=== PATIENT | female | born 1995 | race American Indian/Alaskan Native ===

== ENCOUNTER 2016-08-23 19:33 | Emergency (ER) | payer SELFPAY ==
[2016-08-23 21:10] LABS: Basophils % (Auto) 0.9 % (0.0-1.8); Eosinophils % (Auto) 1.1 % (0.0-4.3); Hematocrit 36.3 % (30.3-42.9); Hemoglobin 11.7 gm/dl (10.1-14.3); Mean Corpuscular HGB Conc 32 % (30-34); Mean Corpuscular Hemoglobin 26 pg (28-32); Mean Corpuscular Volume 81 fl (79-97); Platelet Count 312 K/mm3 (140-440); Red Blood Count 4.49 M/mm3 (3.65-5.03); Red Cell Distribution Width 14.8 % (13.2-15.2); White Blood Count 7.2 K/mm3 (4.5-11.0)
[2016-08-23 21:23] LABS: Alanine Aminotransferase 11 units/L (7-56); Albumin/Globulin Ratio 1.1 %; Alkaline Phosphatase 101 units/L (35-129); Anion Gap 17 mmol/L; BUN/Creatinine Ratio 11.42; Bilirubin,Total < 0.2 mg/dL (0.1-1.2); Blood Urea Nitrogen 8 mg/dL (7-17); Calcium 9.1 mg/dL (8.4-10.2); Carbon Dioxide 25 mmol/L (22-30); Chloride 100.5 mmol/L (98-107); Glucose 96 mg/dL (65-100); Lipase 12 units/L (13-60); Potassium 4.3 mmol/L (3.6-5.0); Sodium 138 mmol/L (137-145); Total Protein 7.6 g/dL (6.3-8.2)
[2016-08-23 22:19] LABS: Bacteria,Urine 1+ /HPF (Negative); Bilirubin,Urine NEG (Negative); Blood,Urine NEG (Negative); Ketones,Urine NEG (Negative); Leukocyte Esterase,Urine SM (Negative); Mucus,Urine FEW /HPF; Nitrite,Urine NEG (Negative); Protein,Urine <15 mg/dL mg/dL (Negative); Urobilinogen,Urine < 2.0 mg/dL (<2.0)
[2016-08-24] MEDS ORDERED: NORCO 5/325 PO ONE (01:12)
--- NOTE | 2016-08-24 01:16 | Emergency Department Report ---
HPI - General Chief Complaint: Abdominal Pain Time Seen by Provider: 08/24/16 00:53 - HPI HPI: The patient is a 20-year-old female who presents for evaluation of abdominal pain. The patient reports right lower quadrant abdominal pain for the past 3 days, constant and severe since 5 PM earlier today, cramping and sharp in quality, and exacerbated with bearing down during micturition or defecation. She shares that she has experienced similar pains in the same location for greater than the past one year, and that she has received multiple evaluations including by her [employer] without definitive diagnosis of etiology of her symptoms. The patient denies fever, chills, night sweats, diarrhea, blood in the stool, dark tarry stool, dysuria, hematuria, flank pain, genital discharge, inability to pass flatus. ED Past Medical Hx - Past Medical History Previous Medical History?: Yes Hx Hypertension: Yes - Surgical History Past Surgical History?: Yes Additional Surgical History: cyst removed off ovary 2yrs ago - Social History Smoking Status: Never Smoker Substance Use Type: None - Medications Home Medications: Home Medications Medication Instructions Recorded Confirmed Last Taken Type Acetaminophen/Codeine [Tylenol #3] 1 tab PO Q6H PRN #12 tab 08/24/16 Unknown Rx Ibuprofen [Motrin] 800 mg PO Q8HR PRN #14 tablet 08/24/16 Unknown Rx ED Review of Systems ROS: Stated complaint: RT ABD PAIN Other details as noted in HPI Constitutional: denies: fever ENT: denies: throat or neck pain Respiratory: denies: cough, shortness of breath Cardiovascular: denies: chest pain Endocrine: denies unexplained weight loss or gain Gastrointestinal: reports abdominal pain, nausea Genitourinary: denies: dysuria Musculoskeletal: denies: leg swelling Skin: denies: rash Neurological: denies: headache Hematological/Lymphatic: denies: easy bleeding or easy bruising Psych: denies sadness or hopelessness Physical Exam - Physical Exam Vital Signs: Vital Signs 08/23/16 08/24/16 20:07 00:50 Temperature 98.2 F 97.9 F Pulse Rate 78 89 Respiratory 18 16 Rate Blood Pressure 142/92 Blood Pressure 144/93 [Left] O2 Sat by Pulse 100 100 Oximetry Physical Exam: General: well-nourished, well-developed, no acute distress Head: Normocephalic, atraumatic Eyes: normal sclera ENT: Mucous membranes are pink and moist Neck: trachea midline, neck supple, No neck stiffness, no cervical adenopathy Respiratory: Breath sounds equal bilaterally, no wheezing, rales, or rhonchi Cardio: S1 and S2 present, no murmurs, rubs, gallops, capillary refill is brisk Abdomen: Normoactive bowel sounds, soft abdomen, right lower quadrant tenderness to palpation present, no rigidity, no guarding or rebound tenderness Chest WALL/Back: No tenderness to palpation of the chest wall, no CVA tenderness with percussion Musc: No pitting edema Skin: No rash Neuro: no facial drooping, normal speech Psych: Normal affect ED Course Vital Signs 08/23/16 08/24/16 20:07 00:50 Temperature 98.2 F 97.9 F Pulse Rate 78 89 Respiratory 18 16 Rate Blood Pressure 142/92 Blood Pressure 144/93 [Left] O2 Sat by Pulse 100 100 Oximetry ED Medical Decision Making - Lab Data Result diagrams: 08/23/16 20:44 08/23/16 20:44 - Medical Decision Making The patient was seen and examined by myself. The patient is placed on a desk monitor and continuous pulse ox. On initial evaluation, the patient was found to be in no distress. Evaluation orders are placed. The patient given a tablet of [place] for her pain. lab results were non-concerning including WBC, hemoglobin, hematocrit, electrolytes, renal function, LFTs, lipase, neg preg test, and nml urinalysis. The patient was reevaluated and reported that their symptoms were markedly improved. The patient is stable for discharge with outpatient follow-up. The patient is given follow-up and return instructions. The patient expressed understanding and agreed with the plan. The patient is discharged in stable condition. Critical care attestation.: If time is entered above; I have spent that time in minutes in the direct care of this critically ill patient, excluding procedure time. ED Disposition Clinical Impression: Acute abdominal pain in right lower quadrant Disposition: DISCHARGED TO HOME OR SELFCARE Is pt being admited?: No Does the pt Need Aspirin: No Condition: Stable Instructions: Dysfunctional Uterine Bleeding (ED), Ovarian Cyst (ED), Abdominal Pain (ED) Prescriptions: Acetaminophen/Codeine [Tylenol #3] 1 tab PO Q6H PRN #12 tab PRN Reason: Pain Ibuprofen [Motrin] 800 mg PO Q8HR PRN #14 tablet PRN Reason: Pain Referrals: PRIMARY CARE, [Primary Care Provider] - 3-5 Days Forms: Work/School Release Form(ED) Time of Disposition: 01:13
[2016-08-24 01:49] VITALS: BP 131/84
== END 2016-08-24 01:38 | disposition home or self-care (01) ==
LOC: ED 19:33
DX: R10.31 Right lower quadrant pain (principal); I10 Essential (primary) hypertension
CPT/HCPCS: 36415; 80053; 81001; 81025; 83690; 85025; 99284

== ENCOUNTER 2021-09-08 07:05 | Emergency (ER) | payer SELFPAY ==
[2021-09-08] MEDS ORDERED: METOCLOPRAMIDE 10 MG TAB PO ONE (07:29)
[2021-09-08] MEDS ORDERED: ACETAMINOPHEN 500 MG TAB PO ONE (07:29)
--- NOTE | 2021-09-08 07:34 | Emergency Department Report ---
ED General Adult HPI - General Chief complaint: Back Pain/Injury Stated complaint: PAIN & DIZZINESS Time Seen by Provider: 09/08/21 07:21 Source: patient Mode of arrival: Ambulatory Limitations: No Limitations - History of Present Illness Initial comments: Patient presents with multiple issues. For the last 7 days she reports having lower back pain. It is described as an aching pain in the bilateral flank area. The pain is not worsened by movement or palpation. It does not radiate or migrate. She has had concomitant cramping in the pelvis bilaterally. This also seems to wax and wane. There was no trauma associated with this. She has had nausea without vomiting. Patient denies dysuria or frequency. She has not had hematuria. Patient denies vaginal discharge but does state that her last menstrual cycle was normal in August. She states that she is currently 6 days late for this particular menstrual cycle. Last menstrual cycle she did not states was at the end of July and it is currently the end of August but she still states that she is 6 days late. She states that her periods are usually fairly regular. She has not done anything to prevent . She has not completed a test. She is a . She did not have symptoms like this with . Patient states that she feels weak all over. She feels lightheaded. She states that she just does not feel good and does have a headache. There has been no cough or congestion. She has had no fevers or chills. Patient denies sick contacts. Severity scale (0 -10): 7 - Related Data Previous Rx's Medication Instructions Recorded Last Taken Type Acetaminophen/Codeine [Tylenol #3] 1 tab PO Q6H PRN #12 tab 08/24/16 Unknown Rx Ibuprofen [Motrin] 800 mg PO Q8HR PRN #14 tablet 08/24/16 Unknown Rx Allergies Allergy/AdvReac Type Severity Reaction Status Date / Time No Known Allergies Allergy Unverified 08/23/16 20:14 ED Review of Systems ROS: Stated complaint: PAIN & DIZZINESS Other details as noted in HPI Comment: All other systems reviewed and negative Constitutional: denies: fever Eyes: denies: vision change ENT: denies: throat pain Respiratory: denies: cough Cardiovascular: denies: chest pain Endocrine: denies: unexplained weight loss Gastrointestinal: as per HPI Genitourinary: as per HPI Musculoskeletal: as per HPI Skin: denies: rash Neurological: as per HPI Hematological/Lymphatic: denies: easy bruising ED Past Medical Hx - Past Medical History Hx Hypertension: Yes - Surgical History Additional Surgical History: cyst removed off ovary 2yrs ago - Family History Family history: hypertension - Social History Smoking Status: Never Smoker Substance Use Type: None - Medications Home Medications: Home Medications Medication Instructions Recorded Confirmed Last Taken Type Acetaminophen/Codeine [Tylenol #3] 1 tab PO Q6H PRN #12 tab 08/24/16 Unknown Rx Ibuprofen [Motrin] 800 mg PO Q8HR PRN #14 tablet 08/24/16 Unknown Rx ED Physical Exam - General Limitations: No Limitations, Other (Pulse ox noted and normal) General appearance: alert, in no apparent distress, obese - Head Head exam: Present: atraumatic, normocephalic, normal inspection - Eye Eye exam: Present: normal appearance, PERRL, EOMI. Absent: scleral icterus - ENT ENT exam: Present: normal orophraynx, normal external ear exam - Neck Neck exam: Present: normal inspection. Absent: meningismus - Respiratory Respiratory exam: Present: normal lung sounds bilaterally. Absent: respiratory distress - Cardiovascular Cardiovascular Exam: Present: regular rate, normal rhythm - GI/Abdominal GI/Abdominal exam: Present: soft. Absent: distended, tenderness, guarding, rebound - Extremities Exam Extremities exam: Present: normal capillary refill. Absent: calf tenderness - Back Exam Back exam: Absent: CVA tenderness (R), CVA tenderness (L) - Neurological Exam Neurological exam: Present: alert, oriented X3, CN II-XII intact, normal gait. Absent: motor sensory deficit - Psychiatric Psychiatric exam: Present: normal affect, normal mood - Skin Skin exam: Present: warm, dry ED Course Vital Signs 09/08/21 07:17 Temperature 98.8 F Pulse Rate 77 Respiratory 16 Rate Blood Pressure 134/80 [Right] O2 Sat by Pulse 98 Oximetry - Reevaluation(s) Reevaluation #1: 09/08/21 07:33 Labs were ordered. Medications were ordered. Old records reviewed. Reevaluation #2: 09/08/21 08:16 Lab was called and asked to start processing the urine sample that they have. Reevaluation #3: 09/08/21 08:35 UA was noted. test was noted. Ultrasound and for the labs have been added on. Patient was updated. Reevaluation #4: 09/08/21 10:56 Work-up was complete and the patient was discharged ED Medical Decision Making - Lab Data Result diagrams: 09/08/21 09:16 09/08/21 09:16 - Radiology Data Radiology results: report reviewed - Medical Decision Making Patient presents with lower back pain and abdominal cramping in the pelvis. She is not so ectopic has been excluded. She has no peritoneal findings suggestive of peritonitis. She certainly does not have tenderness in the McBurney's point area to suggest appendicitis. Patient does not have distention or tympany suggestive of bowel obstruction. She had reported headache with other symptoms. There is no trauma. She does not have a fever here. She was , but there was no evidence of ectopic. She clinically did not have features of ectopic. However her quant is so low that an ultrasound would not exclude ectopic. She has been referred to OB for follow-up and given strict return precautions. Critical Care Time: No Critical care attestation.: If time is entered above; I have spent that time in minutes in the direct care of this critically ill patient, excluding procedure time. ED Disposition Clinical Impression: Abdominal cramping, Generalized headache, Generalized weakness, Abdominal pain affecting Lower back pain Qualifiers: Chronicity: acute Back pain laterality: bilateral Sciatica presence: without sciatica Qualified Code(s): M54.50 - Low back pain, unspecified Disposition: 01 HOME / SELF CARE / HOMELESS Is pt being admited?: No Condition: Stable Instructions: Abdominal Pain, Adult, [id number], Flank Pain, Adult, Easy-to- Read, Pain Without a Known Cause, Weakness, Abdominal Pain During , [id number] Additional Instructions: Drink plenty water. Continue to use Tylenol as needed. Follow-up with your family doctor or the referral doctor for recheck. Return for any problems or c oncerns. Referrals: COLLEEN DOOLEY MD [Staff Physician] - 3-5 Days PRIMARY CAREMD [Primary Care Provider] - 3-5 Days MANJULA POLANCO MD [Staff Physician] - 3-5 Days
[2021-09-08 08:24] LABS: HCG Qualitative,Urine Positive (Negative)
[2021-09-08 08:27] LABS: Bilirubin,Urine NEG (Negative); Blood,Urine NEG (Negative); Color,Urine Straw (Yellow); Protein,Urine <15 mg/dL mg/dL (Negative); Urobilinogen,Urine < 2.0 mg/dL (<2.0)
[2021-09-08 08:30] LABS: RBC,Urine < 1.0 /HPF (0.0-6.0); WBC,Urine < 1.0 /HPF (0.0-6.0)
[2021-09-08 09:59] LABS: Hematocrit 35.5 % (30.3-42.9); Hemoglobin 11.6 gm/dl (10.1-14.3); Mean Corpuscular HGB Conc 33 % (30-34); Mean Corpuscular Volume 82 fl (79-97); Platelet Count 371 K/mm3 (140-440); Red Blood Count 4.36 M/mm3 (3.65-5.03); Red Cell Distribution Width 14.9 % (13.2-15.2)
--- NOTE | 2021-09-08 10:08 | Ultrasound Report ---
ULTRASOUND OBSTETRIC INDICATION / CLINICAL INFORMATION: Abdominal pain with . Clinical Gestational Age (GA) in weeks, days: 4, 4 TECHNIQUE: Transabdominal. COMPARISON: None available. FINDINGS: No intrauterine is identified. The uterus measures 8.8 cm in length. Endometrial stripe brandy sures 10 mm. ADNEXA: The right ovary measures 2.8 cm and the left ovary measures 4.3 cm. There is a 7 mm cyst in t he right ovary is 2.3 cm cyst in the left ovary. FREE FLUID: None. ADDITIONAL FINDINGS: None. IMPRESSION: No intrauterine is seen. Correlation with serum beta hCG level is recommended. Based upon t he patient's clinical dates there could be an IUP which is too early to visualize by ultrasound. Foll ow-up ultrasound should be obtained as is clinically warranted. Signer Name: Felice Boyd MD Signed: 09/08/2021 10:03 AM Workstation Name: [id number]
[2021-09-08 10:15] LABS: BUN/Creatinine Ratio 12; Blood Urea Nitrogen 7 mg/dL (7-17); Calcium 9.4 mg/dL (8.4-10.2); Hemolysis Index 8
[2021-09-08 11:27] VITALS: BP 119/83
== END 2021-09-08 11:27 | disposition home or self-care (01) ==
LOC: ED 07:05
DX: O26.899 Other specified pregnancy related conditions, unspecified trimester (principal); R10.84 Generalized abdominal pain; R51.9 Headache, unspecified; M62.81 Muscle weakness (generalized); M54.50 Low back pain, unspecified; Z3A.00 Weeks of gestation of pregnancy not specified
CPT/HCPCS: 36415; 76801; 80048; 81001; 81025; 84702; 85027; 99284

== ENCOUNTER 2021-09-16 08:34 | Emergency (ER) | payer BC, MEDICAID ==
--- NOTE | 2021-09-16 08:59 | Emergency Department Report ---
ED Female HPI - General Chief complaint: Vaginal Bleeding Stated complaint: POSS MISCARRIAGE Time Seen by Provider: 09/16/21 08:51 Source: patient Mode of arrival: Ambulatory Limitations: No Limitations - History of Present Illness Initial comments: Chief complaint: "I may be losing the baby." HPI: This is a 25-year-old female with history of hypertension who who presents with vaginal spotting today. On 08 September she was diagnosed with pr egnancy. Beta-hCG level 99. Ultrasound report did not reveal IUP. She denies any pain. She saw specks of blood in the toilet this morning. She also saw blood on tissue when she wiped. Patient cannot recall her last menstrual period. MD Complaint: vaginal bleeding -: Gradual, This morning Location: perineum Severity: mild Severity scale (0 -10): 0 Consistency: constant Improves with: none Worsens with: none Are you Now?: Yes Associated Symptoms: denies other symptoms - Related Data Previous Rx's Medication Instructions Recorded Last Taken Type Acetaminophen/Codeine [Tylenol #3] 1 tab PO Q6H PRN #12 tab 08/24/16 Unknown Rx Ibuprofen [Motrin] 800 mg PO Q8HR PRN #14 tablet 08/24/16 Unknown Rx Allergies Allergy/AdvReac Type Severity Reaction Status Date / Time No Known Allergies Allergy Unverified 08/23/16 20:14 ED Review of Systems ROS: Stated complaint: POSS MISCARRIAGE Other details as noted in HPI Comment: All other systems reviewed and negative Constitutional: denies: chills, fever, malaise Respiratory: denies: cough, shortness of breath Cardiovascular: denies: chest pain Gastrointestinal: denies: abdominal pain, nausea, vomiting ED Past Medical Hx - Past Medical History Previous Medical History?: Yes Hx Hypertension: Yes - Surgical History Past Surgical History?: Yes Additional Surgical History: cyst removed off ovary 2yrs ago - Social History Smoking Status: Never Smoker Substance Use Type: None - Medications Home Medications: Home Medications Medication Instructions Recorded Confirmed Last Taken Type Acetaminophen/Codeine [Tylenol #3] 1 tab PO Q6H PRN #12 tab 08/24/16 Unknown Rx Ibuprofen [Motrin] 800 mg PO Q8HR PRN #14 tablet 08/24/16 Unknown Rx ED Physical Exam - General Limitations: No Limitations General appearance: alert, in no apparent distress - Head Head exam: Present: atraumatic, normocephalic - Eye Eye exam: Present: normal appearance - ENT ENT exam: Present: mucous membranes moist - Neck Neck exam: Present: normal inspection, full ROM - Respiratory Respiratory exam: Present: normal lung sounds bilaterally. Absent: respiratory distress, wheezes, rales, rhonchi - Cardiovascular Cardiovascular Exam: Present: regular rate, normal rhythm, normal heart sounds. Absent: systolic murmur, diastolic murmur, rubs, gallop - GI/Abdominal GI/Abdominal exam: Present: soft, normal bowel sounds. Absent: distended, tenderness, guarding - Extremities Exam Extremities exam: Present: normal inspection - Neurological Exam Neurological exam: Present: alert, oriented X3 - Psychiatric Psychiatric exam: Present: normal affect, normal mood - Skin Skin exam: Present: warm, dry, intact, normal color. Absent: rash ED Course Vital Signs 09/16/21 09/16/21 09/16/21 08:45 09:16 09:17 Temperature 98.9 F Pulse Rate 97 H Respiratory 18 Rate Blood Pressure 154/107 O2 Sat by Pulse 97 100 99 Oximetry 09/16/21 09/16/21 09/16/21 09:18 09:19 09:21 Temperature Pulse Rate Respiratory Rate Blood Pressure 135/67 135/67 135/67 O2 Sat by Pulse 98 99 98 Oximetry 09/16/21 09/16/21 09/16/21 09:23 09:25 09:27 Temperature Pulse Rate Respiratory Rate Blood Pressure 135/67 134/71 134/71 O2 Sat by Pulse 99 100 99 Oximetry 09/16/21 09/16/21 09/16/21 09:29 09:31 09:33 Temperature Pulse Rate Respiratory Rate Blood Pressure 134/71 134/71 134/71 O2 Sat by Pulse 98 100 99 Oximetry 09/16/21 09/16/21 09/16/21 09:35 09:37 09:39 Temperature Pulse Rate Respiratory Rate Blood Pressure 134/71 134/71 134/71 O2 Sat by Pulse 100 100 100 Oximetry 09/16/21 09/16/21 09/16/21 09:41 09:43 09:45 Temperature Pulse Rate Respiratory Rate Blood Pressure 134/71 134/71 134/71 O2 Sat by Pulse 99 100 100 Oximetry 09/16/21 09/16/21 09/16/21 09:47 09:49 09:51 Temperature Pulse Rate Respiratory Rate Blood Pressure 134/71 134/71 134/71 O2 Sat by Pulse 100 100 100 Oximetry 09/16/21 09/16/21 09/16/21 09:53 09:54 09:55 Temperature Pulse Rate Respiratory Rate Blood Pressure 134/71 127/70 127/70 O2 Sat by Pulse 100 100 100 Oximetry 09/16/21 09/16/21 09/16/21 09:57 09:59 10:01 Temperature Pulse Rate Respiratory Rate Blood Pressure 127/70 127/70 127/70 O2 Sat by Pulse 100 99 100 Oximetry 09/16/21 09/16/21 09/16/21 10:03 10:05 10:07 Temperature Pulse Rate Respiratory Rate Blood Pressure 127/70 127/70 127/70 O2 Sat by Pulse 100 100 100 Oximetry 09/16/21 09/16/21 09/16/21 10:09 10:11 10:13 Temperature Pulse Rate Respiratory Rate Blood Pressure 127/70 127/70 127/70 O2 Sat by Pulse 100 100 100 Oximetry 09/16/21 09/16/21 09/16/21 10:15 10:17 10:19 Temperature Pulse Rate Respiratory Rate Blood Pressure 127/70 127/70 127/70 O2 Sat by Pulse 100 100 100 Oximetry 09/16/21 09/16/21 09/16/21 10:21 10:23 10:24 Temperature Pulse Rate Respiratory Rate Blood Pressure 127/70 127/70 127/77 O2 Sat by Pulse 100 99 100 Oximetry 09/16/21 10:25 Temperature Pulse Rate Respiratory Rate Blood Pressure 127/77 O2 Sat by Pulse 100 Oximetry ED Medical Decision Making - Lab Data Result diagrams: 09/16/21 09:37 - Radiology Data Radiology results: report reviewed Patient Name: RENETTA CABEZAS Gender: Female Date of : 1995 Referring Provider: UNA NICHOLAS Organization: [facility] Accession Number: [id number] Requested Date: September 16, 2021 08:56 Report Status: Final Requested Procedure: 1 Procedure Description: US OB transvaginal Modality: US Findings Reporting MD: Rodolfo Gunter Dictation Time: September 16, 2021 10:16 International Logistics Coordinator: Not available Shuttle Fitting Supervisor Date: ULTRASOUND OBSTETRIC REASON FOR EXAM: Vaginal bleeding first trimester TECHNIQUE: Transabdominal and transvaginal ultrasound was performed to evaluate a first trimester . COMPARISON: 09/08/2021 FINDINGS: FINDINGS: No intrauterine is visualized. No suspicious adnexal mass is visualized. MATERNAL FINDINGS: Uterus: The uterus demonstrates a normal sonographic appearance. The uterus measures 10.0 x 5.7 x 6.1 cm. Right ovary: The right ovary measures 3.1 x 1.8 x 2.5 cm. The right ovary demonstrates a normal sonographic appearance and normal doppler flow. Left ovary: The left ovary measures 4.5 x 2.7 x 2.3 cm. There is a 2.5 cm cyst in the left ovary. No suspicious adnexal mass. Normal ovarian Doppler flow. Cul-de-sac: Trace free fluid. IMPRESSION: of unknown location. Findings could reflect an early intrauterine , occult ectopic , or recent spontaneous . Recommend correlation with beta hCG. Signer Name: Rodolfo Gunter MD Signed: 09/16/2021 10:16 AM Workstation Name: [id number] - Medical Decision Making with vaginal bleeding: Differential diagnosis includes spontaneous , ectopic . With vaginal bleeding spontaneous miscarriage is likely. I have asked patient to return in 48 hours for repeat hCG to rule out ectopic . With hCG of 279, ectopic less likely. Patient given extensive education. H&H within normal limits. Blood type A+ Critical care attestation.: If time is entered above; I have spent that time in minutes in the direct care of this critically ill patient, excluding procedure time. ED Disposition Clinical Impression: Threatened miscarriage Disposition: 01 HOME / SELF CARE / HOMELESS Is pt being admited?: No Does the pt Need Aspirin: No Condition: Stable Instructions: Threatened Miscarriage Additional Instructions: Please return to emergency department 48 hours for repeat blood test. Referrals: LIBRADO LOUIS MD [Staff Physician] - 3-5 Days
[2021-09-16 09:55] LABS: Basophils # (Auto) 0.1 K/mm3 (0.0-0.1); Basophils % (Auto) 1.1 % (0.0-1.8); Eosinophils # (Auto) 0.1 K/mm3 (0.0-0.4); Eosinophils % (Auto) 1.8 % (0.0-4.3); Hematocrit 32.9 % (30.3-42.9); Hemoglobin 10.9 gm/dl (10.1-14.3); Lymphocytes # (Auto) 2.4 K/mm3 (1.2-5.4); Lymphocytes % (Auto) 42.4 % (13.4-35.0); Mean Corpuscular HGB Conc 33 % (30-34); Mean Corpuscular Volume 83 fl (79-97); Monocytes # (Auto) 0.6 K/mm3 (0.0-0.8); Monocytes % (Auto) 10.5 % (0.0-7.3); Platelet Count 325 K/mm3 (140-440); Red Blood Count 3.99 M/mm3 (3.65-5.03); Red Cell Distribution Width 14.7 % (13.2-15.2)
--- NOTE | 2021-09-16 11:21 | Ultrasound Report ---
ULTRASOUND OBSTETRIC REASON FOR EXAM: Vaginal bleeding first trimester TECHNIQUE: Transabdominal and transvaginal ultrasound was performed to evaluate a first trimester pre gnancy. COMPARISON: 09/08/2021 FINDINGS: FINDINGS: No intrauterine is visualized. No suspicious adnexal mass is visualized. MATERNAL FINDINGS: Uterus: The uterus demonstrates a normal sonographic appearance. The uterus measures 10.0 x 5.7 x 6.1 cm. Right ovary: The right ovary measures 3.1 x 1.8 x 2.5 cm. The right ovary demonstrates a normal sonog raphic appearance and normal doppler flow. Left ovary: The left ovary measures 4.5 x 2.7 x 2.3 cm. There is a 2.5 cm cyst in the left ovary. No suspicious adnexal mass. Normal ovarian Doppler flow. Cul-de-sac: Trace free fluid. IMPRESSION: of unknown location. Findings could reflect an early intrauterine , occult ectopic , or recent spontaneous . Recommend correlation with beta hCG. Signer Name: Rodolfo Gunter MD Signed: 09/16/2021 11:16 AM Workstation Name: [id number]
[2021-09-16 13:00] VITALS: BP 120/70
== END 2021-09-16 13:01 | disposition home or self-care (01) ==
LOC: ED 08:34
DX: O20.0 Threatened abortion (principal); Z3A.00 Weeks of gestation of pregnancy not specified; I10 Essential (primary) hypertension
CPT/HCPCS: 36415; 76801; 76817; 84702; 85025; 86900; 86901; 99284

== ENCOUNTER 2021-09-18 12:58 | Emergency (ER) | payer BC ==
[2021-09-18 13:22] VITALS: BP 146/88
--- NOTE | 2021-09-18 15:39 | Emergency Department Report ---
ED General Adult HPI - General Chief complaint: Recheck/Abnormal Lab/Rx Stated complaint: RECHECK LABS Time Seen by Provider: 09/18/21 15:12 Source: patient, old records reviewed Mode of arrival: Ambulatory Limitations: No Limitations - History of Present Illness Initial comments: 25-year-old female presents to the ER today to have her quant rechecked. Patient was initially seen here on September 08, 2021 for abdominal pain and feeling dizzy. At the time she found out that she was . Her quant at that time was 99.57. She returned again on September 16, 2021 because at the time she was having vaginal bleeding. Her quant at that time measured at two 7.94. Her OB ultrasound at that time showed of unknown location which could represent early IUP, occult ectopic or recent spontaneous . Patient reports that she was informed to return today to have her quant rechecked. Patient states that since her last visit her bleeding has significantly slowed down. She is only seeing some mild brown discharge when she wipes after urinating and she has not had any pain. She is scheduled to see a primary care doctor on Wednesday who is going to refer to an NUCLE[facility] WEAPONS SPECIALIST. She denies no dizziness, syncope or near syncope, or any additional symptoms. MD Complaint: Recheck Quant -: days(s) - Related Data Previous Rx's Medication Instructions Recorded Last Taken Type Acetaminophen/Codeine [Tylenol #3] 1 tab PO Q6H PRN #12 tab 08/24/16 Unknown Rx Ibuprofen [Motrin] 800 mg PO Q8HR PRN #14 tablet 08/24/16 Unknown Rx Allergies Allergy/AdvReac Type Severity Reaction Status Date / Time No Known Allergies Allergy Unverified 08/23/16 20:14 ED Review of Systems ROS: Stated complaint: RECHECK LABS Other details as noted in HPI ED Past Medical Hx - Past Medical History Hx Hypertension: Yes - Surgical History Additional Surgical History: cyst removed off ovary 2yrs ago - Social History Smoking Status: Never Smoker Substance Use Type: None - Medications Home Medications: Home Medications Medication Instructions Recorded Confirmed Last Taken Type Acetaminophen/Codeine [Tylenol #3] 1 tab PO Q6H PRN #12 tab 08/24/16 Unknown Rx Ibuprofen [Motrin] 800 mg PO Q8HR PRN #14 tablet 08/24/16 Unknown Rx ED Physical Exam - General Limitations: No Limitations ED Course Vital Signs 09/18/21 13:17 Temperature 98.5 F Pulse Rate 89 Respiratory 18 Rate Blood Pressure 146/88 O2 Sat by Pulse 100 Oximetry ED Medical Decision Making - Medical Decision Making 1552: Quantitative hCG trend shows that it is increasing. It went from 99.57, 279.4, 411.3 (today). Patient denies any abdominal pain or pelvic pain and she has no bleeding today. She also has no dizziness, syncope or any additional symptoms. She is well-appearing and nontoxic. She has a soft nontender abdomen her vital signs are stable. Given that her quant is only 411 today, still considered early and ultrasound may not see anything. Since patient is not having any symptoms currently, I recommend she return on September 20 during which time hopefully her quant should have doubled and have a repeat ultrasound. She does understand that if at any point she develops any abdominal pelvic pain or significant bleeding between now one-sided to return to the ER sooner. Patient expressed understanding and agree with plan. Patient was stable at time of discharge. Critical care attestation.: If time is entered above; I have spent that time in minutes in the direct care of this critically ill patient, excluding procedure time. ED Disposition Clinical Impression: Early stage of Disposition: 01 HOME / SELF CARE / HOMELESS Is pt being admited?: No Does the pt Need Aspirin: No Condition: Stable Instructions: First Trimester of , [id number] Additional Instructions: I recommend that you return to ED on September 20 for repeat Quant and OB US. If you develop any abdominal or pelvic pain and vaginal bleeding between now and september 20, return sooner to ED. Referrals: [facility] [Provider Group] - 3-5 Days Time of Disposition: 15:52
== END 2021-09-19 16:15 | disposition home or self-care (01) ==
LOC: ED 12:58
DX: Z34.91 Encounter for supervision of normal pregnancy, unspecified, first trimester (principal)
CPT/HCPCS: 36415; 84702; 99283

== ENCOUNTER 2021-09-20 08:47 | Emergency (ER) | payer BC ==
--- NOTE | 2021-09-20 09:57 | Emergency Department Report ---
ED General Adult HPI - General Chief complaint: Abdominal Pain Stated complaint: ultra sound/checkup Time Seen by Provider: 09/20/21 08:59 Source: patient Mode of arrival: Ambulatory Limitations: No Limitations - History of Present Illness Initial comments: 25-year-old -[place] female patient presents today for repeat beta hCG and ultrasound. Patient was seen here 09/16 and 09/18 for abdominal pain in . No pain at last visit and beta-hCG increased from 2 79-4 11. Ultrasound was negative for IUP on 09/16. Patient was instructed by provider on 09/18 to return to the ED for repeat labs and ultrasound. She denies any abdominal pain pain, vaginal bleeding, dysuria/hematuria/urinary frequency, or other symptoms. Patient states she is feeling well Severity scale (0 -10): 0 - Related Data Previous Rx's Medication Instructions Recorded Last Taken Type Acetaminophen/Codeine [Tylenol #3] 1 tab PO Q6H PRN #12 tab 08/24/16 Unknown Rx Ibuprofen [Motrin] 800 mg PO Q8HR PRN #14 tablet 08/24/16 Unknown Rx Allergies Allergy/AdvReac Type Severity Reaction Status Date / Time No Known Allergies Allergy Unverified 08/23/16 20:14 ED Review of Systems ROS: Stated complaint: ultra sound/checkup Other details as noted in HPI Constitutional: denies: chills, diaphoresis, fever, malaise Cardiovascular: denies: chest pain Gastrointestinal: denies: abdominal pain, nausea, vomiting Genitourinary: denies: urgency, dysuria, frequency, hematuria Musculoskeletal: denies: back pain Skin: denies: lesions ED Past Medical Hx - Past Medical History Hx Hypertension: Yes - Surgical History Additional Surgical History: cyst removed off ovary 2yrs ago - Social History Smoking Status: Never Smoker - Medications Home Medications: Home Medications Medication Instructions Recorded Confirmed Last Taken Type Acetaminophen/Codeine [Tylenol #3] 1 tab PO Q6H PRN #12 tab 08/24/16 Unknown Rx Ibuprofen [Motrin] 800 mg PO Q8HR PRN #14 tablet 08/24/16 Unknown Rx ED Physical Exam - General Limitations: No Limitations General appearance: alert, in no apparent distress - Head Head exam: Present: atraumatic, normocephalic - Eye Eye exam: Present: normal appearance - Respiratory Respiratory exam: Absent: respiratory distress - Cardiovascular Cardiovascular Exam: Present: regular rate - GI/Abdominal GI/Abdominal exam: Present: soft. Absent: distended, guarding, rebound, rigid - Neurological Exam Neurological exam: Present: alert, oriented X3, normal gait - Psychiatric Psychiatric exam: Present: normal affect, normal mood - Skin Skin exam: Present: warm, dry, intact, normal color. Absent: rash ED Course Vital Signs 09/20/21 09/20/21 09:30 09:32 Temperature 98.3 F 98.3 F Pulse Rate 84 84 Respiratory 16 16 Rate Blood Pressure 135/80 Blood Pressure 135/80 [Right] O2 Sat by Pulse 99 99 Oximetry ED Medical Decision Making - Radiology Data Radiology results: report reviewed ULTRASOUND OBSTETRIC INDICATION / CLINICAL INFORMATION: repeat, early . TECHNIQUE: Transvaginal. COMPARISON: Transabdominal ultrasound earlier same day and OB ultrasound September 2021 FINDINGS: GESTATIONAL SAC: Not identified YOLK SAC: Not identified EMBRYO/FETUS: Not identified ADNEXA: No significant abnormality. FREE FLUID: Amount of free fluid within the posterior cul-de-sac. ADDITIONAL FINDINGS: Endometrium measures approximately 1.1 cm in thickness.. IMPRESSION: No sonographic evidence of intrauterine . No adnexal lesions or free fluid. Correlation with serial beta hCG levels and short-term sonographic follow-up ultrasound is recommended. - Medical Decision Making 25-year-old -[place] female patient presents today for repeat beta hCG and ultrasound. Patient was seen here 09/16 and 09/18 for abdominal pain in . No pain at last visit and beta-hCG increased from 2 79-4 11. Ultrasound was negative for IUP on 09/16. Patient was instructed by provider on 09/18 to return to the ED for repeat labs and ultrasound. She denies any abdominal pain pain, vaginal bleeding, dysuria/hematuria/urinary frequency, or other symptoms. Patient states she is feeling well Beta-hCG today 327. Ultrasound continues to show no IUP or other acute abnormalities. I recommend patient follows up with [facility] within 7 days for repeat ultrasound. Discussed possible miscarriage and importance of follow-up with [facility] HATCHERY ASSISTANT in 1 week for ultrasound and labs. She is otherwise well-appearing, her vitals are within normal limits, she is stable for discharge home. Strict return precautions discussed in detail with patient who verbalizes understanding Critical care attestation.: If time is entered above; I have spent that time in minutes in the direct care of this critically ill patient, excluding procedure time. ED Disposition Clinical Impression: Threatened miscarriage Disposition: HOME / SELF CARE / HOMELESS Is pt being admited?: No Condition: Stable Instructions: Abdominal Pain (ED), Threatened Miscarriage, [id number] Referrals: [facility] [Provider Group] - 3-5 Days [facility] [Provider Group] - 3-5 Days [facility] [Provider Group] - 3-5 Days Forms: Work/School Release Form(ED)
--- NOTE | 2021-09-20 11:27 | Ultrasound Report ---
ULTRASOUND OBSTETRIC INDICATION / CLINICAL INFORMATION: repeat, early . TECHNIQUE: Transabdominal. COMPARISON: OB ultrasound 09/16/2021 FINDINGS: GESTATIONAL SAC: Not identified YOLK SAC: Not identified EMBRYO/FETUS: Not identified ADNEXA: No significant abnormality. FREE FLUID: None. ADDITIONAL FINDINGS: Endometrial thickness measures 1.2 cm IMPRESSION: No sonographic evidence of intrauterine . No adnexal lesions or free fluid. Correlation with serial beta hCG levels and short-term sonographic follow-up ultrasound is recommended. Signer Name: Alverto Adams MD Signed: 09/20/2021 11:23 AM Workstation Name: [id number]
--- NOTE | 2021-09-20 11:34 | Ultrasound Report ---
ULTRASOUND OBSTETRIC INDICATION / CLINICAL INFORMATION: repeat, early . TECHNIQUE: Transvaginal. COMPARISON: Transabdominal ultrasound earlier same day and OB ultrasound September 2021 FINDINGS: GESTATIONAL SAC: Not identified YOLK SAC: Not identified EMBRYO/FETUS: Not identified ADNEXA: No significant abnormality. FREE FLUID: Amount of free fluid within the posterior cul-de-sac. ADDITIONAL FINDINGS: Endometrium measures approximately 1.1 cm in thickness.. IMPRESSION: No sonographic evidence of intrauterine . No adnexal lesions or free fluid. Correlation with serial beta hCG levels and short-term sonographic follow-up ultrasound is recommended. Signer Name: Alverto Adams MD Signed: 09/20/2021 11:30 AM Workstation Name: [id number]
[2021-09-20 12:11] VITALS: BP 128/77
== END 2021-09-20 12:10 | disposition home or self-care (01) ==
LOC: ED 08:47
DX: O20.0 Threatened abortion (principal); Z3A.01 Less than 8 weeks gestation of pregnancy; I10 Essential (primary) hypertension
CPT/HCPCS: 36415; 76801; 76817; 84702; 99284

== ENCOUNTER 2021-10-19 23:42 | Emergency (ER) | payer BC ==
--- NOTE | 2021-10-20 00:50 | Emergency Department Report ---
ED General Adult HPI - General Chief complaint: Abdominal Pain Stated complaint: OVARIAN CYST PAIN Time Seen by Provider: 10/20/21 00:50 Source: patient Mode of arrival: Ambulatory Limitations: No Limitations - History of Present Illness Initial comments: Patient presents with complaints of left lower abdominal pain, sharp, non radiating, 9/10, not worsened or relieved by anything. Denies nausea, vomiting. Last BM was today and formed. Endorses flatulence. Denies dysuria, frequency, urgency. Reports vaginal bleeding x 7 days. LMP prior to that was in 07/2021. Severity scale (0 -10): 10 - Related Data Previous Rx's Medication Instructions Recorded Last Taken Type Acetaminophen/Codeine [Tylenol #3] 1 tab PO Q6H PRN #12 tab 08/24/16 Unknown Rx Ibuprofen [Motrin] 800 mg PO Q8HR PRN #14 tablet 08/24/16 Unknown Rx Allergies Allergy/AdvReac Type Severity Reaction Status Date / Time No Known Allergies Allergy Verified 10/20/21 00:16 ED Review of Systems ROS: Stated complaint: OVARIAN CYST PAIN Other details as noted in HPI Comment: All other systems reviewed and negative Constitutional: denies: chills, fever ED Past Medical Hx - Past Medical History Previous Medical History?: Yes Hx Hypertension: Yes Additional medical history: Ovarian Cyst - Surgical History Past Surgical History?: Yes Additional Surgical History: cyst removed off ovary 2yrs ago - Social History Smoking Status: Never Smoker - Medications Home Medications: Home Medications Medication Instructions Recorded Confirmed Last Taken Type Acetaminophen/Codeine [Tylenol #3] 1 tab PO Q6H PRN #12 tab 08/24/16 Unknown Rx Ibuprofen [Motrin] 800 mg PO Q8HR PRN #14 tablet 08/24/16 Unknown Rx ED Physical Exam - General Limitations: No Limitations General appearance: alert, other (in severe pain) - Head Head exam: Present: atraumatic, normocephalic - Eye Eye exam: Present: PERRL, EOMI - ENT ENT exam: Present: mucous membranes moist, other (airway patent) - Neck Neck exam: Present: other (supple; no JVD) - Respiratory Respiratory exam: Present: other (good air entry, nml I:E, CTAB, no use of WANDA) - Cardiovascular Cardiovascular Exam: Present: regular rate. Absent: rubs, gallop - GI/Abdominal GI/Abdominal exam: Present: other (tender to palpation in suprapubic region and LLQ; (+) rebound tenderness and involuntary guarding) - Extremities Exam Extremities exam: Present: full ROM. Absent: tenderness - Back Exam Back exam: Present: full ROM. Absent: CVA tenderness (R), CVA tenderness (L) - Neurological Exam Neurological exam: Present: alert, oriented X3, CN II-XII intact. Absent: motor sensory deficit - Skin Skin exam: Present: warm, normal color ED Course Vital Signs 10/20/21 10/20/21 00:05 02:13 Temperature 97.9 F Pulse Rate 90 Respiratory 24 Rate O2 Sat by Pulse 97 96 Oximetry ED Medical Decision Making - Lab Data Result diagrams: 10/20/21 01:00 10/20/21 01:00 Laboratory Tests 10/20/21 10/20/21 10/20/21 01:00 01:00 01:00 WBC 8.8 RBC 4.16 Hgb 11.0 Hct 34.7 MCV 84 MCH 27 L MCHC 32 RDW 14.3 Plt Count 325 Lymph % (Auto) 18.7 Harding % (Auto) 7.9 H Eos % (Auto) 0.7 Baso % (Auto) 0.6 Lymph # (Auto) 1.6 Harding # (Auto) 0.7 Eos # (Auto) 0.1 Baso # (Auto) 0.0 Seg Neutrophils % 72.1 H Seg Neutrophils # 6.4 Sodium 137 Potassium 4.4 Chloride 103.5 Carbon Dioxide 23 Anion Gap 15 BUN 11 Creatinine 0.7 Estimated GFR > 60 BUN/Creatinine Ratio 16 Glucose 134 H Calcium 9.0 Total Bilirubin 0.20 AST 11 ALT 9 Alkaline Phosphatase 85 Total Protein 7.1 Albumin 3.9 Albumin/Globulin Ratio 1.2 Lipase 12 L HCG, Qual Positive HCG, Quant 10/20/21 01:00 WBC RBC Hgb Hct MCV MCH MCHC RDW Plt Count Lymph % (Auto) Harding % (Auto) Eos % (Auto) Baso % (Auto) Lymph # (Auto) Harding # (Auto) Eos # (Auto) Baso # (Auto) Seg Neutrophils % Seg Neutrophils # Sodium Potassium Chloride Carbon Dioxide Anion Gap BUN Creatinine Estimated GFR BUN/Creatinine Ratio Glucose Calcium Total Bilirubin AST ALT Alkaline Phosphatase Total Protein Albumin Albumin/Globulin Ratio Lipase HCG, Qual HCG, Quant 442.7 H HCG : 09/20/2021-> 327 09/18/2021-> 411 transvaginal US: no intrauterine ; L adnexal cystic structure; small amount of free fluid in pelvis - Medical Decision Making likely 2/2 ectopic vs ruptured ovarian cyst. Former favored Dr. Rob (TALKBACK HOST) consulted. Will take patient to OR Critical care attestation.: If time is entered above; I have spent that time in minutes in the direct care of this critically ill patient, excluding procedure time. ED Disposition Clinical Impression: Abdominal pain affecting , Vaginal bleeding affecting early Disposition: ADMITTED INPATIENT Is pt being admited?: Yes Does the pt Need Aspirin: No Condition: Stable Instructions: Abdominal Pain (ED) Time of Disposition: 03:00 (Patient admitted to Dr. Rob. Sign out was given by me to the admitting physician. )
[2021-10-20 01:31] LABS: Basophils % (Auto) 0.6 % (0.0-1.8); Eosinophils # (Auto) 0.1 K/mm3 (0.0-0.4); Eosinophils % (Auto) 0.7 % (0.0-4.3); Hematocrit 34.7 % (30.3-42.9); Lymphocytes # (Auto) 1.6 K/mm3 (1.2-5.4); Lymphocytes % (Auto) 18.7 % (13.4-35.0); Mean Corpuscular HGB Conc 32 % (30-34); Mean Corpuscular Volume 84 fl (79-97); Monocytes # (Auto) 0.7 K/mm3 (0.0-0.8); Monocytes % (Auto) 7.9 % (0.0-7.3); Platelet Count 325 K/mm3 (140-440); Red Blood Count 4.16 M/mm3 (3.65-5.03); Red Cell Distribution Width 14.3 % (13.2-15.2)
[2021-10-20] MEDS ORDERED: ONDANSETRON 4 MG/2 ML INJ IV ONE (01:43)
[2021-10-20] MEDS ORDERED: MORPHINE 4 MG/1 ML INJ IV ONE (01:43)
[2021-10-20 01:50] LABS: Alanine Aminotransferase 9 units/L (7-56); Albumin 3.9 g/dL (3.9-5); Blood Urea Nitrogen 11 mg/dL (7-17); Hemolysis Index 2
[2021-10-20 01:56] LABS: BUN/Creatinine Ratio 16
[2021-10-20] MEDS ORDERED: SODIUM CHLORIDE 0.9% 500 ML 500 ML IV ONE (02:52)
--- NOTE | 2021-10-20 03:05 | Ultrasound Report ---
Obstetrical ultrasound first trimester INDICATION: Left lower quadrant pain. TECHNIQUE: Real-time grayscale and Doppler imaging performed. COMPARISON: 09/20/2021 FINDINGS: No intrauterine is identified. The endometrial thickness is normal at 6 mm. The r ight ovary appears normal with multiple follicles. No significant free pelvic fluid is identified. Th ere is a focal echogenic lesion measuring about 4.3 x 2.2 x 2.8 cm arising near the left adnexa/left ovary. The left ovary is identified to contain several follicles. Within this echogenic structure along the left adnexa no significant associated internal flow is identified. IMPRESSION: No intrauterine identified on this exam or the 09/20/2021, 09/16/2021 or 09/08/2021 exams. There is a nonspecific 4.3 x 2.2 x 2.8 cm echogenic structure along the left adnexa that is difficult to separate from the left ovary but has clearly enlarged since multiple prior exams. Ectopi c cannot be excluded and CHILDCARE ADMINISTRATOR consultation is suggested. Signer Name: Truong Bender MD Signed: 10/20/2021 3:01 AM Workstation Name: [email or web address]
[2021-10-20] MEDS ORDERED: SODIUM CHLORIDE 0.9% 1000 ML 1,000 ML IV SCH (03:15)
[2021-10-20] MEDS ORDERED: ceFAZolin/Water 2 GM/20 ML 2 GM/20 ML SYRINGE IV NR (04:00)
[2021-10-20 06:50] LABS: Bacteria,Urine 1+ /HPF (Negative); Bilirubin,Urine NEG (Negative); Blood,Urine MOD (Negative); Color,Urine Yellow (Yellow); Mucus,Urine FEW /HPF; Protein,Urine <15 mg/dL mg/dL (Negative); RBC,Urine < 1.0 /HPF (0.0-6.0); Urobilinogen,Urine < 2.0 mg/dL (<2.0); WBC,Urine < 1.0 /HPF (0.0-6.0)
--- NOTE | 2021-10-20 09:24 | History and Physical Report ---
History of Present Illness Date of examination: 10/20/21 Date of admission: 10/20/21 Chief complaint: Pelvic pain, positive test. History of present illness: LMP was 08/07/2021. Serum qaunts and serial US exams were inclusive. Patient now reporting significant pelvic coupled with rising serum HCG, no iup and a left adnexal mass. Past History Past Medical History: no pertinent history Past Surgical History: other (Ovarian cystectomy. 2015.) - Obstetrical History : 2 Para: 1 Medications and Allergies Allergies Allergy/AdvReac Type Severity Reaction Status Date / Time No Known Allergies Allergy Verified 10/20/21 00:16 Home Medications Medication Instructions Recorded Confirmed Last Taken Type Acetaminophen/Codeine [Tylenol #3] 1 tab PO Q6H PRN #12 tab 08/24/16 Unknown Rx Ibuprofen [Motrin] 800 mg PO Q8HR PRN #14 tablet 08/24/16 Unknown Rx Active Meds: Active Medications Sodium Chloride (Nacl 0.9% 1000 Ml) 1,000 mls @ 125 mls/hr IV DIRECT ELVIA Last Admin: 10/20/21 03:47 Dose: 125 mls/hr Review of Systems All systems: negative Gastrointestinal: abdominal pain Genitourinary: vaginal bleeding, pelvic pain - Vital Signs Vital signs: Vital Signs Temp Pulse Resp Pulse Ox 97.9 F 90 24 97 10/20/21 00:05 10/20/21 00:05 10/20/21 00:05 10/20/21 00:05 Temp Pulse Resp BP Pulse Ox 97.9 F 91 H 16 125/68 98 10/20/21 00:05 10/20/21 06:11 10/20/21 06:11 10/20/21 06:11 10/20/21 06:11 - Physical Exam Cardiovascular: Normal S1, Normal S2 Lungs: Positive: Normal air movement Abdomen: Positive: tenderness, normal bowel sounds Extremities: Positive: normal Deep Tendon Reflex Grade: Normal +2 Results Result Diagrams: 10/20/21 01:00 10/20/21 01:00 Abnormal lab results 10/20/21 10/20/21 10/20/21 Range/Units 01:00 01:00 01:00 MCH 27 L (28-32) pg Kaufman % (Auto) 7.9 H (0.0-7.3) % Seg Neutrophils % 72.1 H (40.0-70.0) % Glucose 134 H (65-100) mg/dL Lipase 12 L (13-60) units/L HCG, Quant 442.7 H (0-4) mIU/mL Crossmatch 10/20/21 Range/Units 01:50 MCH (28-32) pg Kaufman % (Auto) (0.0-7.3) % Seg Neutrophils % (40.0-70.0) % Glucose (65-100) mg/dL Lipase (13-60) units/L HCG, Quant (0-4) mIU/mL Crossmatch See Detail All other labs normal. Ultrasound: report reviewed (Left adnexal mass. ) Assessment and Plan - Patient Problems (1) Ectopic Current Visit: Yes Status: Acute Plan to address problem: For exploratory laparoscopy/laparotomy dion.
--- NOTE | 2021-10-20 11:06 | Anesthesia Consultation ---
Anesthesia Consult and Med Hx Date of service: 10/20/21 - Airway Anesthetic Teeth Evaluation: Good ROM Head & Neck: Adequate Mental/Hyoid Distance: Adequate Mallampati Class: Class II Intubation Access Assessment: Probably Good - Pulmonary Exam CTA: Yes - Cardiac Exam Cardiac Exam: RRR - Pre-Operative Health Status ASA Pre-Surgery Classification: ASA2 Proposed Anesthetic Plan: General - Pulmonary Hx Smoking: No Hx Asthma: No Hx Respiratory Symptoms: No Hx Sleep Apnea: No - Cardiovascular System Hx Hypertension: No Hx Heart Attack/AMI: No Hx Heart Murmur: Yes - Central Nervous System Hx Neuromuscular Disorder: No - Gastrointestinal Hx Gastroesophageal Reflux Disease: Yes (r/t previous ) - Endocrine Hx Renal Disease: No Hx Liver Disease: No Hx Non-Insulin Dependent Diabetes: No (Prediabetes) Hx Thyroid Disease: No - Hematic Hx Anemia: No - Other Systems Hx Alcohol Use: No Hx Substance Use: No Hx Cancer: No Hx Obesity: Yes (BMI 30) - Additional Comments Anesthesia Medical History Comments: no hx of anesthetic complications
--- NOTE | 2021-10-20 11:09 | Anesthesia Day of Surgery ---
Anesthesia Day of Surgery - Day of Surgery Patient Examined: Yes Patient H&P Reviewed: Yes Patient is NPO: Yes (since 1600 on 10/19/21)
[2021-10-20] MEDS ORDERED: MIDAZOLAM 2 MG/2 ML INJ ONE (13:34)
[2021-10-20] MEDS ORDERED: propofoL 200 MG/20 ML VIAL IV ONE (13:34)
[2021-10-20] MEDS ORDERED: ROCURONIUM 50 MG/5 ML INJ IV ONE (13:34)
[2021-10-20] MEDS ORDERED: KETAMINE/STERILE WATER 50 MG/ML SYRINGE ONE (13:35)
[2021-10-20] MEDS ORDERED: SODIUM CHLORIDE 0.9% IRR 1,500 ML BOTTLE IR ONE (14:03)
[2021-10-20] MEDS ORDERED: SODIUM CHLORIDE 0.9% IRRIG SOLN 2000 ML IR ONE (14:51)
[2021-10-20] MEDS ORDERED: WATER FOR IRRIG STERILE 1,500 ML BOTTLE IR ONE (14:51)
[2021-10-20] MEDS ORDERED: OXYTOCIN 10 UNIT/1 ML INJ ONE (14:55)
[2021-10-20] MEDS ORDERED: dexAMETHasone 20 MG/5 ML VIAL ONE (14:55)
[2021-10-20] MEDS ORDERED: GLYCOPYRROLATE 0.4 MG/2 ML INJ ONE (14:55)
[2021-10-20] MEDS ORDERED: KETOROLAC 30 MG/1 ML INJ ONE (14:55)
[2021-10-20] MEDS ORDERED: NEOSTIGMINE 10MG/10 ML INJ MDV ONE (14:55)
[2021-10-20] MEDS ORDERED: ceFAZolin 1 GM VIAL ONE (14:55)
--- NOTE | 2021-10-20 16:16 | Post Anesthesia Evaluation ---
- Post Anesthesia Evaluation Patient Participated: Yes Airway Patent: Yes Stable Respiratory Function: Yes Nausea/Vomiting: No Temp > 96.8F: Yes Pain Manageable: Yes Adequeate Hydration: Yes Anesthesia Complications: No Block Receding Appropriately: Not Applicable Patient on Ventilator: No
--- NOTE | 2021-10-20 16:21 | Operative Report ---
Operative Report Operative Report: Date of surgery: October 20, 2021 Admission diagnosis: Pelvic pain, abdominal pain, positive test, ec topic Postoperative diagnosis: The same, left tubal ectopic . Procedure: Diagnostic laparoscopic. Excision of left fallopian tube. Surgeon: Libertad Rob MD Anesthesia: General anesthesia Anesthesiologist: Prince JUNIOR Estimated blood loss: Less than 50 cc Complications: None Findings: The uterus, right fallopian tube and ovaries were all grossly normal. The bowels, omentum, inferior dome of the diaphragm, the liver were all grossly normal. There was a bulging mass in the ampullary aspect of the left fallopian tube with bleeding through the fimbrial end. Patient was taken to the operating room and in the straight supine position she was given general anesthesia. Patient was then put in the lithotomy position and prepped in the vulvar vagina and abdomen. The drapes were placed. A timeout was done. Wished to go ahead from the splitter tender, an indwelling Mclaughlin catheter was inserted. A sponge forceps was attached to the anterior lip of the cervix and was used to anchor the acorn cannula. At the navel a small stab incision was made in the sub-umbilical aspect. The Veress needle was carefully inserted into the peritoneal cavity, making sure to point the tip of this instruments towards the free hollow of the pelvis. The Veress needle was thereafter aspirated and no blood was drawn. Veress needle was then flushed through with a small quantity of sterile normal saline without any resistance. About 3 and half liters of carbon dioxide was used to insufflate the peritoneal cavity. After removing the Veress needle, a 5 mm trocar with its port was inserted into the peritoneal cavity and again making sure to point the tip of this instrument into the free hollow of the pelvis. The laparoscope was subsequently confirmed successful access to the peritoneal cavity. 1 additional 5 mm port was placed in the left flank, and a 11mm port in the right flank. The general peritoneal cavity was inspected and the source of the bleeding was located at the left fallopian tube. This mass was excised using the Ligasure via a left salpingectomy. There was no bleeding intraperitoneally. The peritoneal cavity was irrigated with normal saline. Hemostasis was very good. Careful inspection of the peritoneal cavity was once again done. The pneumoperitoneum was then expelled and all instruments were removed from the abdomen. Oozing from the stab incisions was controlled with the Bovie before each incision was sealed with #4-0 vicryl and Dermabond. The patient tolerated the procedure well. There were no complications. Blood loss was estimated at less than 50 cc. All sponges and instruments were accounted for. The patient was transferred in satisfactory condition to the recovery room.
[2021-10-20] MEDS ORDERED: ONDANSETRON 4 MG/2 ML INJ IV PRN (16:30)
[2021-10-20] MEDS ORDERED: HYDROmorphone 1 MG/1 ML INJ IV PRN ×2 (16:30)
[2021-10-20 20:15] VITALS: BP 160/94
== END 2021-10-20 18:15 | disposition home or self-care (01) ==
LOC: ED 23:42
DX: O20.8 Other hemorrhage in early pregnancy (principal); R10.32 Left lower quadrant pain; Z3A.01 Less than 8 weeks gestation of pregnancy
CPT/HCPCS: 36415; 59151; 76817; 80053; 81001; 83690; 84702; 84703; 85025; 86850; 86900; 86901; 86920; 88305; 96361; 96374; 96375; 99284; J0690; J1100; J1170; J1815; J1885; J2250; J2270; J2405; J2590; J2704; J2710; J3490; J7030; J7120; Q0162